=== PATIENT | male | born 1985 | race Caucasian/White ===

== ENCOUNTER 2022-05-23 21:57 | Inpatient (IN) | payer BC ==
[~2022-05-23] VITALS: Ht 180.3 cm; Wt 77.3 kg
[2022-05-24 02:56] LABS: BASOPHILS # (AUTO) 0.1 X10'3 (0-0.2); BASOPHILS % (AUTO) 0.7 % (0-1); EOSINOPHILS # (AUTO) 0.1 X10'3 (0-0.9); EOSINOPHILS % (AUTO) 1.1 % (0-6); HEMATOCRIT 46.1 % (42.0-52.0); HEMOGLOBIN 15.3 g/dl (14.0-17.9); LYMPHOCYTES # (AUTO) 1.5 X10'3 (1.1-4.8); LYMPHOCYTES % (AUTO) 12.9 % (21-51); MEAN CORPUSCULAR HEMOGLOBIN 31.9 PG (27.0-31.0); MEAN CORPUSCULAR HGB CONC 33.3 g/dL (33.0-36.5); MEAN CORPUSCULAR VOLUME 95.6 FL (78-98); MEAN PLATELET VOLUME 7.7 FL (7.4-10.4); MONOCYTES # (AUTO) 1.4 X10'3 (0-0.9); MONOCYTES % (AUTO) 11.8 % (2-12); NEUTROPHILS # (AUTO) 8.6 X10'3 (1.8-7.7); NEUTROPHILS % (AUTO) 73.5 % (42-75); PLATELET COUNT 402 X10'3 (140-440); RED BLOOD COUNT 4.82 X10'6 (4.70-6.10); RED CELL DISTRIBUTION WIDTH 12.7 % (11.5-14.5); WHITE BLOOD COUNT 11.7 X10'3 (4.5-11.0)
[2022-05-24 03:12] LABS: ALANINE AMINOTRANSFERASE 36 U/L (12-78); ALBUMIN 3.7 G/DL (3.4-5.0); ALBUMIN/GLOBULIN RATIO 1.1 (1.1-1.5); ALKALINE PHOSPHATASE 66 IU/L (46-116); ANION GAP 8 (8-16); ASPARTATE AMINO TRANSFERASE 37 U/L (10-37); BILIRUBIN,TOTAL 0.6 MG/DL (0.1-1.0); BLOOD UREA NITROGEN 14 MG/DL (7-18); BUN/CREATININE RATIO 14.4 (5.4-32.0); CALCIUM 9.1 MG/DL (8.5-10.1); CHLORIDE 103 MMOL/L (99-107); CREATININE 0.97 MG/DL (0.60-1.10); GLUCOSE 89 MG/DL (70-104); SODIUM 142 MMOL/L (135-145); TOTAL CARBON DIOXIDE 31.4 MMOL/L (24-32); TOTAL PROTEIN 7.1 G/DL (6.4-8.2); eGFR 88 ML/MIN
[2022-05-24] MEDS ORDERED: polyethylene glycol 3350 17gm powd pack PO ONE (03:30)
[2022-05-24] MEDS ORDERED: normal saline 1000ml 1,000 ML IV ONE (04:20)
[2022-05-24] MEDS ORDERED: ketorolac trometh. 30mg/ml inj. IV ONE (04:20)
[2022-05-24] MEDS ORDERED: morphine 4 MG/ML inj SYRINge IM ONE (05:25)
[2022-05-24] MEDS ORDERED: ondansetron/PF 4mg/2ml inj IM ONE (05:25)
[2022-05-24] MEDS ORDERED: ondansetron/PF 4mg/2ml inj IV ONE (05:40)
[2022-05-24] MEDS ORDERED: morphine 4 MG/ML inj SYRINge IV ONE (05:40)
[2022-05-24] MEDS ORDERED: IBUP-1986 PO (06:10)
[2022-05-24] MEDS ORDERED: HYDR-3965 PO (06:10)
[2022-05-24] MEDS ORDERED: morphine 2 MG/ML inj. syringe IV PRN (07:50)
[2022-05-24] MEDS ORDERED: magnesium 4gm in 100ml NS 100 ML IV PRN (07:50)
[2022-05-24] MEDS ORDERED: ondansetron/PF 4mg/2ml inj IV PRN (07:50)
[2022-05-24] MEDS ORDERED: magnesium Cl slow-release 64mg tablet PO PRN (07:50)
[2022-05-24] MEDS ORDERED: potassium Cl 40MEQ/1/2NS 520ml 520 ML IV PRN (07:50)
[2022-05-24] MEDS ORDERED: magnesium hydroxide 30ml (MOM) UD suspension PO PRN (07:50)
[2022-05-24] MEDS ORDERED: acetaminophen 325mg tablet PO PRN (07:50)
[2022-05-24] MEDS ORDERED: mag hydrox/Alum hydrox/simeth 30ml oral suspension PO PRN (07:50)
[2022-05-24] MEDS ORDERED: potassium Cl 20 mEq SR tablet PO PRN ×2 (07:50)
[2022-05-24] MEDS: docusate sod 100mg capsule PO SCH ×2 (08:00→19:21)
[2022-05-24] MEDS: K and/or MAG REPLACEMENT MC SCH ×2 (08:00→19:21)
[2022-05-24 08:09] LABS: MAGNESIUM 2.2 MG/DL (1.5-2.4)
[2022-05-24] MEDS: morphine 2 MG/ML inj. syringe IV PRN ×4 (08:16→20:47)
[2022-05-24] MEDS: enoxaparin 40mg/0.4ml syringe SUBCUT SCH (08:16)
--- NOTE | 2022-05-24 13:22 | NUR ---
Patient in room ED 2. I have received report from Rodrigue and had the opportunity to ask questions and assume patient care.
[2022-05-24 14:25] VITALS: BP 118/79
[2022-05-24] MEDS ORDERED: HYDROcodone/acetaminophen 5mg/325mg tablet PO PRN (14:35)
--- NOTE | 2022-05-24 14:36 | NUR ---
PAGER ID: [phone] MESSAGE: Mary Surg [phone] Re: Elena, [address] 351 patient surgery is tomorrow can we feed him and also can we get PO pain medication NKDA Addendum: 05/24/22 at 1437 by Mary Nunez RN Received orders to feed patient regular diet til midnight then NPO for surgery in am. Received orders for Haddock 5/325 Q4hr prn 1 tablet PO for mild pain, Haddock 5/325 Q4h prn 2 tablets for moderate to severe pain
[2022-05-24] MEDS: HYDROcodone/acetaminophen 5mg/325mg tablet PO PRN ×3 (14:58→23:16)
[2022-05-24 18:00] VITALS: BP 130/81
--- NOTE | 2022-05-24 18:25 | NUR ---
Problems reprioritized. Patient report given, questions answered & plan of care reviewed with Tressa.
--- NOTE | 2022-05-24 18:30 | NUR ---
Patient in room [facility]. I have received report from AYDIN Stark and had the opportunity to ask questions and assume patient care.
[2022-05-24 22:00] VITALS: BP 137/80
[2022-05-25] VITALS (23 sets, daily range): BP systolic 116–149; BP diastolic 74–99
[2022-05-25] MEDS: morphine 2 MG/ML inj. syringe IV PRN ×4 (00:43→23:33)
[2022-05-25 02:42] LABS: URINE AMPHETAMINE SCREEN POSITIVE (Neg); URINE BARBITUATE SCREEN NEGATIVE (Neg); URINE BENZODIAZEPINES SCREEN POSITIVE (Neg); URINE CANNABINOID SCREEN NEGATIVE (Neg); URINE COCAINE SCREEN NEGATIVE (Neg); URINE METHADONE SCREEN NEGATIVE (Neg); URINE OPIATE SCREEN POSITIVE (Neg); URINE PHENCYCLIDINE SCREEN NEGATIVE (Neg)
[2022-05-25] MEDS: HYDROcodone/acetaminophen 5mg/325mg tablet PO PRN ×4 (03:21→21:19)
--- NOTE | 2022-05-25 06:31 | NUR ---
Problems reprioritized. Patient report given, questions answered & plan of care reviewed with AYDIN Reaves.
[2022-05-25 06:34] LABS: BASOPHILS # (AUTO) 0.1 X10'3 (0-0.2); BASOPHILS % (AUTO) 0.6 % (0-1); EOSINOPHILS # (AUTO) 0.2 X10'3 (0-0.9); EOSINOPHILS % (AUTO) 2.2 % (0-6); HEMATOCRIT 43.2 % (42.0-52.0); HEMOGLOBIN 14.7 g/dl (14.0-17.9); LYMPHOCYTES # (AUTO) 1.7 X10'3 (1.1-4.8); LYMPHOCYTES % (AUTO) 18.5 % (21-51); MEAN CORPUSCULAR HEMOGLOBIN 32.3 PG (27.0-31.0); MEAN CORPUSCULAR VOLUME 95.1 FL (78-98); MEAN PLATELET VOLUME 8.2 FL (7.4-10.4); MONOCYTES # (AUTO) 1.5 X10'3 (0-0.9); MONOCYTES % (AUTO) 15.7 % (2-12); NEUTROPHILS # (AUTO) 5.8 X10'3 (1.8-7.7); PLATELET COUNT 327 X10'3 (140-440); RED BLOOD COUNT 4.54 X10'6 (4.70-6.10); RED CELL DISTRIBUTION WIDTH 12.5 % (11.5-14.5); WHITE BLOOD COUNT 9.3 X10'3 (4.5-11.0)
--- NOTE | 2022-05-25 06:36 | NUR ---
Patient in room [facility]. I have received report from Tressa PERRIN and had the opportunity to ask questions and assume patient care.
[2022-05-25 06:58] LABS: ALANINE AMINOTRANSFERASE 29 U/L (12-78); ALKALINE PHOSPHATASE 58 IU/L (46-116); ANION GAP 4 (8-16); ASPARTATE AMINO TRANSFERASE 26 U/L (10-37); BILIRUBIN,TOTAL 0.4 MG/DL (0.1-1.0); BLOOD UREA NITROGEN 16 MG/DL (7-18); BUN/CREATININE RATIO 18.6 (5.4-32.0); CALCIUM 8.6 MG/DL (8.5-10.1); CHLORIDE 100 MMOL/L (99-107); CREATININE 0.86 MG/DL (0.60-1.10); GLUCOSE 100 MG/DL (70-104); MAGNESIUM 2.2 MG/DL (1.5-2.4); POTASSIUM 3.9 MMOL/L (3.5-5.1); SODIUM 133 MMOL/L (135-145); TOTAL CARBON DIOXIDE 29.1 MMOL/L (24-32); TOTAL PROTEIN 6.7 G/DL (6.4-8.2); eGFR > 90 ML/MIN
[2022-05-25 07:04] LABS: ALBUMIN 3.2 G/DL (3.4-5.0); ALBUMIN/GLOBULIN RATIO 0.9 (1.1-1.5)
[2022-05-25] MEDS: enoxaparin 40mg/0.4ml syringe SUBCUT SCH (07:52)
[2022-05-25] MEDS: docusate sod 100mg capsule PO SCH ×2 (07:52→19:50)
[2022-05-25] MEDS: K and/or MAG REPLACEMENT MC SCH ×2 (07:53→19:31)
[2022-05-25] MEDS ORDERED: cloNIDine hcl/PF 100mcg/ml inj ONE (10:37)
[2022-05-25] MEDS ORDERED: midazolam 1 mg/ML 2ml injection ONE (10:41)
[2022-05-25] MEDS ORDERED: fentaNYL /PF 50mcg/ml 5ml ampule ONE (10:41)
[2022-05-25] MEDS ORDERED: dexamethasone sod phosphate 4mg/ml inj. ONE (11:17)
[2022-05-25] MEDS ORDERED: LIDOcaine 2% (20mg/ml) 5ml vial ONE (11:17)
[2022-05-25] MEDS ORDERED: ROPIVAcaine 0.5% (5mg/ml) 30ml vial ONE (11:17)
[2022-05-25] MEDS ORDERED: ceFAZolin 1000mg inj ONE ×2 (11:17)
[2022-05-25] MEDS ORDERED: ondansetron/PF 4mg/2ml inj ONE (11:17)
[2022-05-25] MEDS ORDERED: propofol inj 20 ML IV ONE (11:18)
--- NOTE | 2022-05-25 11:42 | NUR ---
PATIENT TAKEN TO SURGICAL FLOOR BACK TO ESTABLISHED ROOM WHERE HIS BELONGINGS REMAINED AND HOOKED UP TO ALL MONITORS IN ROOM AND REPORT GIVEN TO RN WHO HAS TAKEN OVER PATIENT CARE. Addendum: 05/25/22 at 1450 by Nivia Guardado RN Amended: Links added.
[2022-05-25] MEDS ORDERED: ondansetron/PF 4mg/2ml inj IV PRN (11:50)
[2022-05-25] MEDS ORDERED: acetaminophen 1,000mg/100ml IV 100 ML IV PRN (11:50)
[2022-05-25] MEDS ORDERED: ringers solution, lacted 1,000 ML IV SCH (11:50)
[2022-05-25] MEDS ORDERED: labetalol 20mg/4ml (5mg/ml) syringe IV PRN (11:50)
[2022-05-25] MEDS ORDERED: proCHLORperazine 10 MG/2 ml inj IV PRN (11:50)
[2022-05-25] MEDS ORDERED: hydrALAZINE 20mg/ml inj. IV PRN (11:50)
[2022-05-25] MEDS ORDERED: morphine 4 MG/ML inj SYRINge IV PRN (11:50)
[2022-05-25] MEDS ORDERED: morphine 2 MG/ML inj. syringe IV PRN (11:50)
[2022-05-25] MEDS ORDERED: meperidine/PF 25mg/ml syringe IV PRN ×2 (11:50)
--- NOTE | 2022-05-25 11:53 | NUR ---
Received from OR via , accompanied by Anesthesiologist NATE AND OR NURSE LEV and report given by Anesthesiolgist. PT ARRIVED TO PACU ON 10LPM OR 02 MAINTAINING AIRWAY WELL; PT BEGAN ABNORMAL BREATHING PATTERN AND NATE IMMEDIATELY ADDED ORAL AIRWAY. NURSE AND SULLIVAN BEGAN TO STIMULATE PT SO ABLE TO MAINTAIN AIRWAY. PT RESPONDED WELL. ORAL AIRWAY STAYED FOR APPROX 30 MINUTES WHEN NURSE WAS ABLE TO REMOVE AND PT ABLE TO MAINTAIN NORMAL BREATHING PATTERN WITH [address] OTHER VITALS WNL. SURGICAL FOOT WITH XEROPHORM, ABD, SCREW UNDER ACEWRAP; CDI. Addendum: 05/25/22 at 1240 by Nivia Guardado RN Amended: Links added.
--- NOTE | 2022-05-25 18:13 | NUR ---
Patient in room [facility]. I have received report from AYDIN Reaves and had the opportunity to ask questions and assume patient care.
--- NOTE | 2022-05-25 18:43 | NUR ---
Problems reprioritized. Patient report given, questions answered & plan of care reviewed with Tressa PERRIN.
[2022-05-25] MEDS ORDERED: enoxaparin 40mg/0.4ml syringe SUBCUT SCH (20:00)
[2022-05-26 01:31] VITALS: BP 129/82
[2022-05-26] MEDS: HYDROcodone/acetaminophen 5mg/325mg tablet PO PRN ×3 (01:34→12:33)
[2022-05-26] MEDS: morphine 2 MG/ML inj. syringe IV PRN ×3 (04:39→13:58)
[2022-05-26 05:36] LABS: BASOPHILS % (AUTO) 0.3 % (0-1); EOSINOPHILS % (AUTO) 0.1 % (0-6); HEMATOCRIT 40.7 % (42.0-52.0); HEMOGLOBIN 13.9 g/dl (14.0-17.9); LYMPHOCYTES # (AUTO) 1.2 X10'3 (1.1-4.8); LYMPHOCYTES % (AUTO) 9.3 % (21-51); MEAN CORPUSCULAR HEMOGLOBIN 32.3 PG (27.0-31.0); MEAN CORPUSCULAR HGB CONC 34.1 g/dL (33.0-36.5); MEAN CORPUSCULAR VOLUME 94.9 FL (78-98); MEAN PLATELET VOLUME 8.3 FL (7.4-10.4); MONOCYTES # (AUTO) 1.4 X10'3 (0-0.9); MONOCYTES % (AUTO) 11.4 % (2-12); NEUTROPHILS % (AUTO) 78.9 % (42-75); PLATELET COUNT 333 X10'3 (140-440); RED BLOOD COUNT 4.29 X10'6 (4.70-6.10); RED CELL DISTRIBUTION WIDTH 12.2 % (11.5-14.5); WHITE BLOOD COUNT 12.7 X10'3 (4.5-11.0)
[2022-05-26 05:51] LABS: ALANINE AMINOTRANSFERASE 23 U/L (12-78); ALBUMIN 2.9 G/DL (3.4-5.0); ALBUMIN/GLOBULIN RATIO 0.8 (1.1-1.5); ALKALINE PHOSPHATASE 55 IU/L (46-116); ANION GAP 7 (8-16); ASPARTATE AMINO TRANSFERASE 22 U/L (10-37); BILIRUBIN,TOTAL 0.3 MG/DL (0.1-1.0); BLOOD UREA NITROGEN 14 MG/DL (7-18); BUN/CREATININE RATIO 15.9 (5.4-32.0); CHLORIDE 101 MMOL/L (99-107); CREATININE 0.88 MG/DL (0.60-1.10); GLUCOSE 133 MG/DL (70-104); MAGNESIUM 2.2 MG/DL (1.5-2.4); POTASSIUM 4.1 MMOL/L (3.5-5.1); SODIUM 139 MMOL/L (135-145); TOTAL CARBON DIOXIDE 31.5 MMOL/L (24-32); TOTAL PROTEIN 6.7 G/DL (6.4-8.2); eGFR > 90 ML/MIN
--- NOTE | 2022-05-26 06:25 | NUR ---
Problems reprioritized. Patient report given, questions answered & plan of care reviewed with AYDIN Reaves.
[2022-05-26] MEDS: K and/or MAG REPLACEMENT MC SCH (06:51)
--- NOTE | 2022-05-26 07:13 | NUR ---
Patient in room [facility]. I have received report from Tressa PERRIN and had the opportunity to ask questions and assume patient care.
[2022-05-26 07:14] VITALS: BP 122/81
[2022-05-26] MEDS: docusate sod 100mg capsule PO SCH (08:00)
[2022-05-26] MEDS: enoxaparin 40mg/0.4ml syringe SUBCUT SCH (08:00)
[2022-05-26 11:06] VITALS: BP 149/78
--- NOTE | 2022-05-26 18:08 | NUR ---
Patient wanting to D/C. Notified Hospitalist, D/C orders received. Reviewed with Patient, Patient verbalized understanding. IV removed with cannula intact. Patient wheeled to lobby by staff with belongings.
[2022-05-26] MEDS ORDERED: HYDR-3965 PO (23:46)
== END 2022-05-26 18:08 | disposition home or self-care (01) | DRG 494 ==
LOC: ER 21:58 → ED HOLD 05-24 07:53 → SUR 3N 05-24 14:00
PROVIDERS: ADMIT Internal Medicine; ATTEND Internal Medicine
PROC: 0QBH0ZZ Excision of Left Tibia, Open Approach (ICD-10-PCS; 2022-05-25)
PROC: 0QSH35Z Reposition Left Tibia with External Fixation Device, Percutaneous Approach (ICD-10-PCS; principal; 2022-05-25 10:38)
DX: S82.872B Displaced pilon fracture of left tibia, initial encounter for open fracture type I or II (principal); F17.210 Nicotine dependence, cigarettes, uncomplicated; W19.XXXA Unspecified fall, initial encounter; F11.10 Opioid abuse, uncomplicated
CPT/HCPCS: 36415; 73600; 73700; 76000; 80053; 80305; 82948; 83735; 85025; 87081; 99285; A4618; A6222; A6223; A6253; A6446; A6449; A7000; C1713; G0378; J0131; J0690; J0735; J1100; J1650; J1885; J2250; J2270; J2405; J2704; J2795; J3010; J3490; J7030; J7060; J7120

== ENCOUNTER 2022-06-19 19:57 | Inpatient (IN) | payer BC ==
[~2022-06-19] VITALS: Ht 180.3 cm; Wt 77.3 kg
[~2022-06-19 19:57] MED LIST: HYDR-3965 PO; IBUP-1986 PO
[2022-06-19] MEDS ORDERED: temazepam 15mg capsule PO PRN (21:00)
[2022-06-19 21:04] LABS: BASOPHILS # (AUTO) 0.1 X10'3 (0-0.2); BASOPHILS % (AUTO) 1.1 % (0-1); EOSINOPHILS # (AUTO) 0.3 X10'3 (0-0.9); EOSINOPHILS % (AUTO) 3.6 % (0-6); HEMATOCRIT 43.6 % (42.0-52.0); HEMOGLOBIN 14.5 g/dl (14.0-17.9); LYMPHOCYTES # (AUTO) 1.9 X10'3 (1.1-4.8); LYMPHOCYTES % (AUTO) 21.7 % (21-51); MEAN CORPUSCULAR HEMOGLOBIN 32.1 PG (27.0-31.0); MEAN CORPUSCULAR HGB CONC 33.3 g/dL (33.0-36.5); MEAN CORPUSCULAR VOLUME 96.4 FL (78-98); MEAN PLATELET VOLUME 7.7 FL (7.4-10.4); MONOCYTES # (AUTO) 1.1 X10'3 (0-0.9); MONOCYTES % (AUTO) 12.7 % (2-12); NEUTROPHILS # (AUTO) 5.3 X10'3 (1.8-7.7); NEUTROPHILS % (AUTO) 60.9 % (42-75); PLATELET COUNT 421 X10'3 (140-440); RED BLOOD COUNT 4.52 X10'6 (4.70-6.10); WHITE BLOOD COUNT 8.6 X10'3 (4.5-11.0)
[2022-06-19 21:15] LABS: ALANINE AMINOTRANSFERASE 23 U/L (12-78); ALBUMIN 3.5 G/DL (3.4-5.0); ALBUMIN/GLOBULIN RATIO 0.9 (1.1-1.5); ALKALINE PHOSPHATASE 119 IU/L (46-116); ANION GAP 8 (8-16); ASPARTATE AMINO TRANSFERASE 20 U/L (10-37); BILIRUBIN,TOTAL 0.3 MG/DL (0.1-1.0); BLOOD UREA NITROGEN 22 MG/DL (7-18); BUN/CREATININE RATIO 17.9 (5.4-32.0); CALCIUM 8.8 MG/DL (8.5-10.1); CHLORIDE 105 MMOL/L (99-107); CREATININE 1.23 MG/DL (0.60-1.10); GLUCOSE 91 MG/DL (70-104); POTASSIUM 3.9 MMOL/L (3.5-5.1); SODIUM 141 MMOL/L (135-145); TOTAL CARBON DIOXIDE 28.1 MMOL/L (24-32); TOTAL PROTEIN 7.4 G/DL (6.4-8.2); eGFR 67 ML/MIN
[2022-06-19] MEDS ORDERED: vancomycin/NS 1 GM ADD-VANTAGE 250 ML IV ONE (21:40)
[2022-06-19] MEDS ORDERED: CefTRIAXone 2gm/D5W 50ml BAG 50 ML IV ONE (21:40)
[2022-06-19] MEDS ORDERED: morphine 2 MG/ML inj. syringe IV PRN ×2 (22:10)
[2022-06-19] MEDS ORDERED: HYDROcodone/acetaminophen 10/325mg tab PO PRN (22:10)
[2022-06-19] MEDS ORDERED: potassium Cl 20 mEq SR tablet PO PRN ×2 (22:10)
[2022-06-19] MEDS ORDERED: HYDROcodone/acetaminophen 5mg/325mg tablet PO PRN (22:10)
[2022-06-19] MEDS ORDERED: potassium Cl 40MEQ/1/2NS 520ml 520 ML IV PRN (22:10)
[2022-06-19] MEDS ORDERED: normal saline 1000ml 1,000 ML IV SCH (22:10)
[2022-06-19] MEDS ORDERED: acetaminophen 325mg tablet PO PRN ×2 (22:10)
[2022-06-19] MEDS ORDERED: magnesium Cl slow-release 64mg tablet PO PRN (22:10)
[2022-06-19] MEDS ORDERED: ondansetron/PF 4mg/2ml inj IV PRN (22:10)
[2022-06-19] MEDS ORDERED: magnesium 4gm in 100ml NS 100 ML IV PRN (22:10)
[2022-06-19] MEDS ORDERED: vancomycin/NS 1 GM ADD-VANTAGE 250 ML IV SCH (23:00)
[2022-06-19] MEDS ORDERED: OXYC-658 PO (23:50)
[2022-06-20 03:50] LABS: BASOPHILS # (AUTO) 0.1 X10'3 (0-0.2); BASOPHILS % (AUTO) 0.7 % (0-1); EOSINOPHILS # (AUTO) 0.3 X10'3 (0-0.9); EOSINOPHILS % (AUTO) 3.4 % (0-6); HEMATOCRIT 40.4 % (42.0-52.0); HEMOGLOBIN 13.7 g/dl (14.0-17.9); LYMPHOCYTES # (AUTO) 1.7 X10'3 (1.1-4.8); LYMPHOCYTES % (AUTO) 19.9 % (21-51); MEAN CORPUSCULAR HEMOGLOBIN 32.1 PG (27.0-31.0); MEAN CORPUSCULAR HGB CONC 33.9 g/dL (33.0-36.5); MEAN CORPUSCULAR VOLUME 94.7 FL (78-98); MEAN PLATELET VOLUME 7.7 FL (7.4-10.4); MONOCYTES # (AUTO) 0.9 X10'3 (0-0.9); MONOCYTES % (AUTO) 11.3 % (2-12); NEUTROPHILS # (AUTO) 5.4 X10'3 (1.8-7.7); NEUTROPHILS % (AUTO) 64.7 % (42-75); PLATELET COUNT 377 X10'3 (140-440); RED BLOOD COUNT 4.26 X10'6 (4.70-6.10); RED CELL DISTRIBUTION WIDTH 12.9 % (11.5-14.5); WHITE BLOOD COUNT 8.3 X10'3 (4.5-11.0)
[2022-06-20 04:01] LABS: ANION GAP 7 (8-16); BLOOD UREA NITROGEN 18 MG/DL (7-18); BUN/CREATININE RATIO 18.4 (5.4-32.0); CHLORIDE 105 MMOL/L (99-107); CREATININE 0.98 MG/DL (0.60-1.10); GLUCOSE 120 MG/DL (70-104); POTASSIUM 3.8 MMOL/L (3.5-5.1); SODIUM 142 MMOL/L (135-145); TOTAL CARBON DIOXIDE 29.6 MMOL/L (24-32)
[2022-06-20 04:02] LABS: ALANINE AMINOTRANSFERASE 22 U/L (12-78); ALBUMIN 3.1 G/DL (3.4-5.0); ALBUMIN/GLOBULIN RATIO 0.9 (1.1-1.5); ALKALINE PHOSPHATASE 104 IU/L (46-116); ASPARTATE AMINO TRANSFERASE 14 U/L (10-37); BILIRUBIN,TOTAL 0.2 MG/DL (0.1-1.0); CALCIUM 8.4 MG/DL (8.5-10.1); TOTAL PROTEIN 6.7 G/DL (6.4-8.2); eGFR 87 ML/MIN
[2022-06-20 06:48] LABS: CLARITY,URINE CLEAR (Clear); COLOR,URINE YELLOW (Yellow); GLUCOSE, URINE NEGATIVE (Neg); KETONES,URINE NEGATIVE (Neg); LEUKOCYTE ESTERASE ,URINE NEGATIVE (Neg); NITRITES, URINE NEGATIVE (Neg); OCCULT BLOOD,URINE NEGATIVE (Neg); PH,URINE 5.5 (4.8-8.0); PROTEIN,URINE NEGATIVE (Neg); UROBILINOGEN,URINE 0.2 E.U/dL (0.2-1.0)
[2022-06-20 06:53] LABS: UA COLLECTION TYPE URINAL
[2022-06-20 07:05] VITALS: BP 135/94
[2022-06-20] MEDS ORDERED: heparin, porcine 5000 units/ml vial SQ SCH (08:00)
[2022-06-20] MEDS ORDERED: cefepime 1GM/NS ADD-VANTAGE 100 ML IV SCH (08:25)
--- NOTE | 2022-06-20 08:25 | NUR ---
Spoke with Dr. Ugalde and informed MD pt wanting to speak with the and is wanting to leave. MD aware and reports he will be coming down sometime today but if pt insists on leaving pt to sign AMA paperwork.
--- NOTE | 2022-06-20 08:46 | NUR ---
Spoke with patient regarding risks leaving AMA. Patient states he is going to [facility] where his girlfriend has already placed a call and they are willing to do the surgery the patient needs. Patient educated on importance of following MD orders and continue IV antibiotics and pain management while under the care of hospitalist Dr Ugalde. Patient continues to refuse to stay and insists on leaving AMA. Primary RN Raul and Janine made aware.
[2022-06-20] MEDS ORDERED: VANCOmycin 1250MG/NS 250ml Bag 250 ML IV SCH (14:00)
[2022-06-22] MEDS ORDERED: VANCOMYCIN LEVEL IV ONE (01:30)
== END 2022-06-20 08:46 | disposition left against medical advice (07) | DRG 920 ==
LOC: ER 19:58 → ED HOLD 22:13 → UNDOADMIN 22:13 → ED HOLD 23:54
PROVIDERS: ADMIT Internal Medicine; ATTEND Family Medicine
DX: M96.89 Other intraoperative and postprocedural complications and disorders of the musculoskeletal system (principal); L03.115 Cellulitis of right lower limb; S82.252A Displaced comminuted fracture of shaft of left tibia, initial encounter for closed fracture; F12.90 Cannabis use, unspecified, uncomplicated; F17.200 Nicotine dependence, unspecified, uncomplicated; Z53.29 Procedure and treatment not carried out because of patient's decision for other reasons; S82.452A Displaced comminuted fracture of shaft of left fibula, initial encounter for closed fracture
CPT/HCPCS: 36415; 73590; 73610; 73630; 80053; 81003; 83605; 84145; 85025; 87040; 93005; 99285; G0378; J0696; J2270; J2405; J3370; J7030